=== PATIENT | female | born 1985 | race Caucasian/White ===

== ENCOUNTER 2018-09-19 21:11 | Emergency (ER) | payer SELFPAY ==
[2018-09-19] MEDS ORDERED: Bupivacaine 0.5% 10 ML VIAL ONE (22:03)
[2018-09-19] MEDS ORDERED: Lidocaine 1% w/Epinephrine 1:100K 20 ML VIAL ONE (22:03)
== END 2018-09-19 22:39 | disposition home or self-care (01) ==
LOC: ERS 21:11
DX: K03.81 Cracked tooth (principal); K02.9 Dental caries, unspecified
CPT/HCPCS: 99282; J2001; J3490

== ENCOUNTER 2018-09-21 10:21 | Emergency (ER) | payer SELFPAY ==
[2018-09-21] MEDS ORDERED: Acetaminophen 500 MG TAB ONE (11:21)
[2018-09-21] MEDS ORDERED: Ibuprofen 800 MG TAB ONE (11:21)
== END 2018-09-21 11:27 | disposition home or self-care (01) ==
LOC: ERS 10:21
DX: K02.9 Dental caries, unspecified (principal)
CPT/HCPCS: 99282

== ENCOUNTER 2018-09-25 09:11 | Emergency (ER) | payer SELFPAY ==
[2018-09-25] MEDS ORDERED: Bupivacaine 0.5% 10 ML VIAL ONE (09:49)
== END 2018-09-25 10:18 | disposition home or self-care (01) ==
LOC: ERS 09:11
DX: K08.89 Other specified disorders of teeth and supporting structures (principal); Z79.01 Long term (current) use of anticoagulants; Z79.899 Other long term (current) drug therapy
CPT/HCPCS: 64400; J3490

== ENCOUNTER 2018-09-26 04:17 | Emergency (ER) | payer SELFPAY ==
[2018-09-26] MEDS ORDERED: Bupivacaine 0.25% 10 ML VIAL ONE (04:39)
[2018-09-26] MEDS ORDERED: Ketorolac Tromethamine 30 MG/ML VIAL ONE (04:43)
[2018-09-26] MEDS ORDERED: Lidocaine Viscous Sol 2% 15 ml UD Cup ONE (05:07)
[2018-09-26] MEDS ORDERED: HYDROcodone/Acetaminophen 10/325 mg Tablet ONE (05:09)
== END 2018-09-26 05:07 | disposition home or self-care (01) ==
LOC: ERS 04:17
DX: K02.9 Dental caries, unspecified (principal)
CPT/HCPCS: 64400; 96372; J1885; S0020